=== PATIENT | male | born 1995 | race Caucasian/White ===

== ENCOUNTER 2017-10-11 16:06 | Inpatient (IN) | payer OTHER ==
[~2017-10-11] VITALS: Ht 182.9 cm; Wt 156.5 kg
[2017-10-11 16:26] VITALS: BP 157/97
[2017-10-11] MEDS ORDERED: NACL 0.9% 1,000 ML IV ONE ×2 (16:55→17:40)
[2017-10-11] MEDS ORDERED: INSULIN REGULAR, HUMAN 100 UNIT/ML VIAL SUBQ ONE (16:55)
--- NOTE | 2017-10-11 17:00 | NUR ---
21m bib mother with c/o 5/10 "sharp" intermittent epigastric pain x 5 days. Pt also reports of polydipsia, n/v. Pt denies any urinary complaints. Pt reports of 3-5 episodes per day. Pt is aox4 with steady gait. Skin warm/dry/appriopriate for ethinicity. RR are even and unlabored. No acute distress noted. ER md kent by bedside. All needs met at this time. Will continue to monitor.
[2017-10-11 17:14] LABS: BASOPHILS # (AUTO) 0.5 K/uL (0.00-0.22); EOSINOPHILS # (AUTO) 0.1 K/uL (0-0.4); HEMATOCRIT 51.3 % (36-52); HEMOGLOBIN 16.9 g/dL (12.0-18.0); LYMPHOCYTES # (AUTO) 2.5 K/uL (2.0-11.5); MEAN CORPUSCULAR HEMOGLOBIN 27 pg (27-31); MEAN CORPUSCULAR HGB CONC 33 g/dL (33-37); MEAN CORPUSCULAR VOLUME 83 fL (80-94); MONOCYTES # (AUTO) 0.8 K/uL (0.8-1.0); NEUTROPHILS # (AUTO) 5.7 K/uL (1.8-7.7); PLATELET COUNT (AUTO) 213 K/uL (140-450); RED BLOOD CELL COUNT(AUTO) 6.18 MIL/uL (4.20-6.10); RED CELL DISTRIBUTION WIDTH 13.1 % (11.6-13.7); WHITE BLOOD COUNT (AUTO) 9.6 K/uL (4.8-10.8)
[2017-10-11] MEDS ORDERED: INSULIN REGULAR, HUMAN 100 UNIT/ML VIAL IVP ONE (17:15)
[2017-10-11 17:32] LABS: ANION GAP 26.1 (8-16); CARBON DIOXIDE 15.8 mmol/L (21-32); CHLORIDE 96 mmol/L (98-107); CREATININE 1.2 mg/dL (0.7-1.3); GFR ARICAN-AMERICAN 98 mL/min (>90); GLUCOSE 352 mg/dL (74-106); POTASSIUM 3.9 mmol/L (3.5-5.1); SODIUM SERUM 134 mmol/L (136-145); UREA NITROGEN, BLOOD 10 mg/dL (7-18)
[2017-10-11 17:39] LABS: ASPARTATE AMINOTRANSFERASE 53 U/L (15-37); FREE T4 (FREE THYROXINE) 1.24 ng/dL (0.76-1.46); THYROID STIMULATING HORMONE 1.82 uIU/mL (0.34-3.74); TOTAL BILIRUBIN 0.7 mg/dL (0.0-1.0)
[2017-10-11] MEDS ORDERED: POTASSIUM CHLORIDE 20% 40 MEQ/15 ML UDC PO ONE (17:40)
[2017-10-11 17:54] LABS: APPEARANCE,URINE CLEAR (CLEAR); BILIRUBIN,URINE 1+ (NEGATIVE); BLOOD, URINE 1+ (NEGATIVE); COLOR,URINE YELLOW (YELLOW); LEUKOCYTE ESTERASE ,URINE NEGATIVE (NEGATIVE); NITRITE, URINE NEGATIVE (NEGATIVE); UGLUCOSE 3+ (NEGATIVE)
--- NOTE | 2017-10-11 18:02 | NUR ---
PT WITH NO COMPLAINTS. PT WENDY ANY NAUSEA AT THIS TIME. MOTHER AND FATHER BY BEDSIDE. WILL CONTINUE TO MONITOR.
[2017-10-11 18:06] LABS: RBC,URINE 3-10 (FEW) /HPF (0-5)
[2017-10-11 18:31] LABS: ACETONE, SERUM SMALL (NEGATIVE)
--- NOTE | 2017-10-11 19:16 | NUR ---
Pt report given to Keith Silva RN. Transfer of care at this time.
--- NOTE | 2017-10-11 19:33 | NUR ---
recieved report from Beti CAMARILLO
[2017-10-11] MEDS ORDERED: MORPHINE SULFATE 2 MG/ML SYR IVP PRN (20:35)
[2017-10-11] MEDS ORDERED: HYDROcodone/APAP 7.5/325 MG 1 TAB PO PRN (20:35)
[2017-10-11] MEDS ORDERED: ACETAMINOPHEN 325 MG TAB PO PRN (20:35)
[2017-10-11] MEDS ORDERED: KETOROLAC 30 MG/ML VIAL IVP PRN (20:35)
[2017-10-11] MEDS ORDERED: DOCUSATE SODIUM 100 MG GELCAP PO PRN (20:35)
[2017-10-11] MEDS ORDERED: PROCHLORPERAZINE 10 MG/2 ML VIAL IVP PRN (20:35)
[2017-10-11] MEDS ORDERED: DEXTROSE 50% 50 ML SYR IVP PRN (20:55)
[2017-10-11] MEDS ORDERED: INSULIN LANTUS 100 UNITS/ML 10 ML VIAL SUBQ SCH ×2 (21:00)
[2017-10-11 21:11] LABS: PROTHROMBIN TIME 11.4 secs (10.8-13.4)
--- NOTE | 2017-10-11 21:15 | NUR ---
RECEIVED PT FROM ED NURSE. PT AMB TO BED. NO ACUTE DISTRESS. FAMILY @ BEDSIDE. WILL CONTINUE TO MONITOR
[2017-10-11 21:21] LABS: CHOL/HDL RATIO 10.4 (1-4.5); MAGNESIUM 1.7 mg/dL (1.8-2.4); PHOSPHORUS 4.4 mg/dL (2.5-4.9); THYROID STIMULATING HORMONE 1.81 uIU/mL (0.34-3.74)
[2017-10-11] MEDS: BLOOD GLUCOSE MONITORING 1 DEV DEV FS SCH (21:26)
--- NOTE | 2017-10-11 21:30 | NUR ---
PT AAOX4 SITTING UP IN BED, ABLE TO MOVE ALL EXTREMITIES PERRLA +3. LUNGS CLEAR TO AUSCULTATION. NSR ON MONITOR +2 PEDAL/RADIAL PULSES. NO EDEMA NOTED. SCDS APPLIED. ABD SOFT NON DISTENDED, PT IS OBESE. LBM 10/11/17. PT VOIDING IN URINAL CLEAR YELLOW URINE. SKIN INTACT. PERIPHERAL IV NOTED TO RIGHT HAND. NO ACUTE DISTRESS NOTED. WILL CONTINUE TO OBSERVE.
[2017-10-11 22:00] VITALS: BP 179/87
[2017-10-11] MEDS: NACL 0.9% 1,000 ML IV SCH (22:15)
[2017-10-11] MEDS: INSULIN LISPRO SLIDING SCALE 100 UNITS/ML VIAL SUBQ PRN (22:21)
--- NOTE | 2017-10-11 22:30 | NUR ---
PT EATING DINNER, TOLERATING PO INTAKE. WILL CONTINUE TO OBSERVE
--- NOTE | 2017-10-11 22:45 | NUR ---
DR. COLON @ BEDSIDE
[2017-10-12] VITALS (12 sets, daily range): BP systolic 127–167; BP diastolic 46–97
--- NOTE | 2017-10-12 00:18 | NUR ---
PT ASLEEP IN BED, AROUSABLE. NO S/S OF ACUTE DISTRESS NOTED. PT DENIES HEADACHE, PAIN, LIGHTHEADEDNESS, NAUSEA OR VOMITING. PT WARM, DRY, AFEBRILE NO SWEATING NOTED. WILL CONTINUE TO MONITOR.
[2017-10-12 00:49] LABS: MAGNESIUM 1.6 mg/dL (1.8-2.4); PHOSPHORUS 3.7 mg/dL (2.5-4.9)
[2017-10-12 00:59] LABS: ANION GAP 23.1 (8-16); CARBON DIOXIDE 15.9 mmol/L (21-32)
[2017-10-12] MEDS: NACL 0.9% 1,000 ML IV SCH ×4 (02:24→15:19)
--- NOTE | 2017-10-12 02:30 | NUR ---
PT ASLEEP IN BED, RESTING COMFORTABLY NO S/S OF DISTRESS NOTED. WILL CONTINUE TO OBSERVE.
[2017-10-12] MEDS ORDERED: BLOOD GLUCOSE MONITORING 1 DEV DEV FS SCH (03:00)
[2017-10-12] MEDS: INSULIN LISPRO SLIDING SCALE 100 UNITS/ML VIAL SUBQ PRN (03:54)
[2017-10-12] MEDS ORDERED: INSULIN REGULAR, HUMAN 100 UNIT/ML VIAL SUBQ ONE (04:00)
[2017-10-12] MEDS ORDERED: MAG SULF 2000 MG/WATER PREMIX 50 ML IV SCH ×2 (04:00→22:30)
[2017-10-12] MEDS ORDERED: INSULIN REGULAR, HUMAN 100 UNIT/ML VIAL SUBQ SCH (04:05)
--- NOTE | 2017-10-12 04:10 | NUR ---
ORDERS CLARIFIED WITH DR. COLON, 6 UNITS HUMALOG GIVEN EARLIER FOR MD LOVE STATED TO GIVE ANOTHER 4 UNITS REGULAR INSULIN. SEE EMAR FOR DETAILS WILL CONTINUE TO OBSERVE.
--- NOTE | 2017-10-12 06:00 | NUR ---
PT HELPED UP TO VOID IN URINAL, 1000 ML OUT. PT AWAKE DENIES PAIN @ THIS TIME. NO S/S OF HYPOGLYCEMIA REPORTED. WILL CONTINUE TO MONITOR.
[2017-10-12 06:39] LABS: BASOPHILS # (AUTO) 0.2 K/uL (0.00-0.22); BASOPHILS % (AUTO) 2.3 % (0.0-2.0); EOSINOPHILS # (AUTO) 0.2 K/uL (0-0.4); HEMATOCRIT 46.7 % (36-52); HEMOGLOBIN 15.8 g/dL (12.0-18.0); LYMPHOCYTES # (AUTO) 2.7 K/uL (2.0-11.5); LYMPHOCYTES % (AUTO) 25.7 % (20.5-51.1); MEAN CORPUSCULAR HEMOGLOBIN 28 pg (27-31); MEAN CORPUSCULAR HGB CONC 34 g/dL (33-37); MEAN CORPUSCULAR VOLUME 82 fL (80-94); MONOCYTES # (AUTO) 0.7 K/uL (0.8-1.0); NEUTROPHILS # (AUTO) 6.8 K/uL (1.8-7.7); PLATELET COUNT (AUTO) 197 K/uL (140-450); RED BLOOD CELL COUNT(AUTO) 5.69 MIL/uL (4.20-6.10); RED CELL DISTRIBUTION WIDTH 12.6 % (11.6-13.7); WHITE BLOOD COUNT (AUTO) 10.6 K/uL (4.8-10.8)
[2017-10-12] MEDS ORDERED: INSULIN LANTUS 100 UNITS/ML 10 ML VIAL SUBQ SCH (07:10)
--- NOTE | 2017-10-12 07:16 | NUR ---
REPORT GIVEN TO [facility] DAY NURSE. ORDERS LABS POC ENDORSED TO DAY SHIFT RN.
--- NOTE | 2017-10-12 07:20 | NUR ---
RECEIVED BEDSIDE REPORT FROM NUTRITIONIST [facility] RN
--- NOTE | 2017-10-12 07:20 | NUR ---
RECEIVED BEDSIDE REPORT FROM MIGRATORY GAME BIRD BIOLOGIST RN, ANGÉLICA, FOR CONTINUITY OF CARE. PATIENT IS AAOX4, ABLE TO FOLLOW COMMANDS AND MAKE NEEDS KNOWN. PATIENT'S SKIN IS INTACT, WARM AND DRY, HAS PERIPHERAL IV SITES TO L.HAND AND R. HAND, BOTH ASYMPTOMATIC, PATENT, INTACT. PERRL. BILATERAL LUNG SOUNDS ARE CLEAR, SYMMETRICAL AND UNLABORED. SR ON VACUUM CLEANER REPAIRER, S1 AND S2 HEART SOUNDS HEARD. ACTIVE BOWEL SOUNDS HEARD IN ALL FOUR QUADS. NO COMPLAINTS OF NAUSEA, VOMITING OF PAIN AT THIS TIME. NO SIGNS OF DISTRESS NOTED. CALL LIGHT WITHIN REACH, HOB IS SEMI-FOWLERS IN LOWEST POSSIBLE POSITION. WILL CONTINUE TO MONITOR.
[2017-10-12 07:25] LABS: POTASSIUM 3.5 mmol/L (3.5-5.1)
[2017-10-12 07:28] LABS: ANION GAP 22.3 (8-16); CARBON DIOXIDE 16.2 mmol/L (21-32)
[2017-10-12] MEDS: GEMFIBROZIL 600 MG TAB PO SCH ×2 (07:30→16:43)
[2017-10-12 07:34] LABS: MAGNESIUM 1.9 mg/dL (1.8-2.4); PHOSPHORUS 3.1 mg/dL (2.5-4.9)
[2017-10-12] MEDS: BLOOD GLUCOSE MONITORING 1 DEV DEV FS SCH ×17 (07:57→23:51)
[2017-10-12] MEDS ORDERED: metFORMIN 850 MG TAB PO SCH (08:00)
--- NOTE | 2017-10-12 08:21 | NUR ---
RESIDENT PHYSICIANS ROUNDING AT BEDSIDE, UPDATED ON PATIENT'S CONDITION. WILL FOLLOW UP ON ANY ORDERS.
--- NOTE | 2017-10-12 08:35 | NUR ---
US TECH AT BEDSIDE FOR ULTRASOUND OF ABDOMEN, PATIENT PRESENTS NO DISTRESS AT THIS TIME.
[2017-10-12] MEDS ORDERED: LORazepam 2 MG/ML VIAL IVP SCH (08:39)
--- NOTE | 2017-10-12 09:15 | NUR ---
RESIDENT PHYSICIAN IN TO DO CENTRAL LINE PLACEMENT FOR PATIENT, US TECH AT BEDSIDE. PATIENT VSS, NO DISTRESS AT THIS TIME.
--- NOTE | 2017-10-12 09:52 | NUR ---
CYBER DEFENSE INCIDENT RESPONDER AT BEDSIDE FOR XRAY OF PLACEMENT OF CENTRAL LINE, PATIENT IS IN STABLE CONDITION AT THIS TIME.
--- NOTE | 2017-10-12 09:55 | NUR ---
AFB 2ND SPECIMEN COLLECTED AT THIS TIME SAMPLE DELIVERED TO [facility] FOR PROCESSING Addendum: 10/12/17 at 1130 by Wu Frost RT DISREGARD DOCUMENTATION ON WRONG PATIENT CARE PROVIDER MISTAKE
[2017-10-12] MEDS: LISINOPRIL 5 MG TAB PO SCH (10:32)
[2017-10-12] MEDS: LACTOBACILLUS RHAMNOSUS GG 1 EACH CAP PO SCH (10:33)
[2017-10-12] MEDS: ASPIRIN 81 MG TAB.CHEW PO SCH (10:33)
[2017-10-12] MEDS: ATORVASTATIN 80 MG TAB PO SCH (10:34)
--- NOTE | 2017-10-12 10:48 | NUR ---
CM NOTE PER LETTUCE CUTTER ROSA, SEND REVIEWS TO [facility] [phone] JOSS MELÉNDEZ # [phone]. INITIAL REVIEW FAXED TO [facility] [phone] ATTN: JOSS MELÉNDEZ # [phone]. Addendum: 10/12/17 at 1133 by Nola Sheehan CM REF# [id number] Addendum: 10/12/17 at 1221 by Nola Sheehan CM PLEASE DISREGARD ABOVE NOTE. WRONG NOTE
--- NOTE | 2017-10-12 10:52 | NUR ---
US TECH AT BEDSIDE FOR ULTRASOUND OF LOWER EXTREMITIES, NO SIGNS OF DISTRESS NOTED AT THIS TIME.
[2017-10-12] MEDS: INSULIN REGULAR, HUMAN 100 UNIT in NACL 0.9% 100 ML IV SCH ×4 (12:04→21:43)
--- NOTE | 2017-10-12 12:18 | NUR ---
CM NOTE INITIAL REVIEW FAXED TO [facility] [phone] ATTN: PAM HOLLINGSWORTH PH# [phone] EXT [phone]
--- NOTE | 2017-10-12 12:53 | NUR ---
FAMILY AT BEDSIDE, UPDATED ON PATIENTS CONDITION, WILL CONTINUE TO MONITOR
[2017-10-12 13:06] LABS: ANION GAP 22.6 (8-16); CARBON DIOXIDE 15.8 mmol/L (21-32); CREATININE 0.9 mg/dL (0.7-1.3); POTASSIUM 3.4 mmol/L (3.5-5.1)
[2017-10-12 13:11] LABS: MAGNESIUM 1.6 mg/dL (1.8-2.4); PHOSPHORUS 3.2 mg/dL (2.5-4.9)
--- NOTE | 2017-10-12 14:36 | NUR ---
10/12/2017 RD INITIAL ASSESSMENT COMPLETED PLEASE REFER TO NUTRITION ASSESSMENT UNDER CARE ACTIVITY FOR ESTIMATED NUTRITIONAL NEEDS. WHEN MEDICALLY FEASIBLE, ADVANCE TO 60 GMS CCHO DIET TOLERATED. PROVIDED DM NUTRITION EDUCATION. WILL FOLLOW UP W/ DIET ED AT NEXT VISIT. RD TO FOLLOW-UP IN 2-3 DAYS PATIENT IS HIGH RISK. PHUONG REYES RD
[2017-10-12] MEDS ORDERED: MAGNESIUM OXIDE 400 MG TAB PO SCH (16:10)
[2017-10-12] MEDS ORDERED: POTASSIUM CHLORIDE 10 MEQ TABER PO SCH (16:10)
--- NOTE | 2017-10-12 16:16 | NUR ---
CALLED DR. BARRINGTON STONE ON [phone] NO ANSWER AND [phone] LEFT RETURN NUMBER [phone] TO REVIEW VENOUS BLOOD SAMPLE REPORT
--- NOTE | 2017-10-12 16:18 | NUR ---
PATIENT CLEANED AND CHANGED GOWN, NO SIGNS OF DISTRESS NOTED. WILL CONTINUE TO MONITOR
[2017-10-12 16:21] LABS: ANION GAP 21.2 (8-16); CARBON DIOXIDE 17.1 mmol/L (21-32); POTASSIUM 3.3 mmol/L (3.5-5.1)
[2017-10-12 16:26] LABS: MAGNESIUM 1.6 mg/dL (1.8-2.4); PHOSPHORUS 3.3 mg/dL (2.5-4.9)
--- NOTE | 2017-10-12 19:34 | NUR ---
RECEIVED PT FROM [facility] DAY NURSE.
--- NOTE | 2017-10-12 19:40 | NUR ---
PT ASLEEP, AROUSABLE PT FAMILY @ BEDSIDE. AAOX4 MOVING ALL EXTREMITIES. LUNGS CTA. SR 90S BP ELEVATED 160S. NO EDEMA NOTED. +2 PEDAL/RADIAL PULSES. ABD SOFT NON DISTENDED, PT OBESE. VOIDING IN URINAL CLEAR YELLOW URINE. SKIN INTACT. PIVS NOTED TO L HAND AND R HAND. CENTRAL LINE TO RIJ NOTED WITH NS @ 200ML/HR, INSULIN DRIP @ 1 UNIT/HR. PT DENIES PAIN NAUSEA VOMITING. NO S/S OF ACUTE DISTRESS NOTED. WILL CONTINUE TO MONITOR.
--- NOTE | 2017-10-12 19:51 | NUR ---
INFORMED MD ABOUT RECENT BS -192 MD, AWAITING MD ORDERS. WILL CONTINUE TO MONITOR.
[2017-10-12] MEDS ORDERED: DEXT 5% / NACL 0.45% 1,000 ML IV SCH (19:55)
[2017-10-12 20:13] LABS: ANION GAP 21.3 (8-16); CARBON DIOXIDE 16.1 mmol/L (21-32); POTASSIUM 3.4 mmol/L (3.5-5.1)
[2017-10-12 20:16] LABS: MAGNESIUM 1.7 mg/dL (1.8-2.4); PHOSPHORUS 3.2 mg/dL (2.5-4.9)
--- NOTE | 2017-10-12 21:25 | NUR ---
BROTHER AND SISTER @ BEDSIDE
[2017-10-12] MEDS ORDERED: KCL 20 MEQ/WATER INJ PREMIX 200 ML IV SCH (22:30)
[2017-10-12] MEDS ORDERED: ONDANSETRON 4 MG/2 ML VIAL IVP PRN (23:25)
[2017-10-12] MEDS ORDERED: POTASSIUM CHL 40 MEQ/ D5-1/2NS 1,000 ML IV SCH (23:25)
--- NOTE | 2017-10-12 23:25 | NUR ---
INFORMED MD ABOUT RECENT SUGAR AND C/O ABD PAIN. MD AWARE. NEW ORDERS RECEIVED SEE EMAR FOR DETAILS. WILL CARRY OUT ORDERS.
--- NOTE | 2017-10-12 23:45 | NUR ---
LAB AT BEDSIDE
[2017-10-13] VITALS (11 sets, daily range): BP systolic 110–164; BP diastolic 54–107
[2017-10-13] MEDS ORDERED: INSULIN LISPRO 100 UNITS/ML VIAL SUBQ SCH
[2017-10-13 00:34] LABS: ANION GAP 20.5 (8-16); CARBON DIOXIDE 16.2 mmol/L (21-32); POTASSIUM 3.7 mmol/L (3.5-5.1)
--- NOTE | 2017-10-13 00:34 | NUR ---
PT ASLEEP, AROUSABLE NO S/S OF ACUTE DISTRESS NOTED. WILL CONTINUE TO OBSERVE.
[2017-10-13 00:38] LABS: MAGNESIUM 2.2 mg/dL (1.8-2.4); PHOSPHORUS 2.6 mg/dL (2.5-4.9)
[2017-10-13] MEDS: BLOOD GLUCOSE MONITORING 1 DEV DEV FS SCH ×23 (00:56→23:11)
--- NOTE | 2017-10-13 03:32 | NUR ---
PT ASLEEP, AROUSABLE. PT STATES ABDOMINAL PAIN IS AT 2/10. STATES HE DOES NOT WANT PAIN MEDS AT THIS TIME. NO OTHER S/S OF DISTRESS NOTED. WILL CONTINUE TO MONITOR.
[2017-10-13 05:15] LABS: ANION GAP 18.7 (8-16); POTASSIUM 3.7 mmol/L (3.5-5.1)
[2017-10-13 05:18] LABS: MAGNESIUM 2.1 mg/dL (1.8-2.4); PHOSPHORUS 2.7 mg/dL (2.5-4.9)
[2017-10-13] MEDS: POTASSIUM CHL 20 MEQ/NACL 0.9% 1,000 ML IV SCH ×5 (05:57→23:07)
--- NOTE | 2017-10-13 06:15 | NUR ---
OFFERED TO BATHE THIS AM; STATED HES WAITING FOR MOTHER TO BRING TOILETRIES FROM HOME. CHANGED GOWN.
[2017-10-13 07:04] LABS: T4 (THYROXINE) 8.4 ug/dL (4.5-12.0)
--- NOTE | 2017-10-13 07:22 | NUR ---
REPORT GIVEN TO DON CAMARILLO. ORDERS, LABS POC ENDORSED TO AM NURSE. NO ACUTE DISTRESS NOTED.
[2017-10-13] MEDS: GEMFIBROZIL 600 MG TAB PO SCH ×2 (07:47→17:02)
[2017-10-13] MEDS: LACTOBACILLUS RHAMNOSUS GG 1 EACH CAP PO SCH (08:37)
[2017-10-13] MEDS: LISINOPRIL 5 MG TAB PO SCH (08:38)
[2017-10-13] MEDS: ATORVASTATIN 80 MG TAB PO SCH (08:38)
[2017-10-13] MEDS: ASPIRIN 81 MG TAB.CHEW PO SCH (08:41)
[2017-10-13 09:33] LABS: ANION GAP 18.7 (8-16); CARBON DIOXIDE 14.8 mmol/L (21-32); POTASSIUM 3.5 mmol/L (3.5-5.1)
[2017-10-13 09:44] LABS: MAGNESIUM 1.4 mg/dL (1.8-2.4); PHOSPHORUS 2.3 mg/dL (2.5-4.9)
[2017-10-13] MEDS ORDERED: MAG SULF 2000 MG/WATER PREMIX 50 ML IV SCH (10:29)
[2017-10-13] MEDS ORDERED: SODIUM PHOS / POTASSIUM PHOS 1 PKT PDR PO SCH (10:36)
--- NOTE | 2017-10-13 10:42 | NUR ---
PATIENT REMAIN ON INSULIN DRIP MONITORING SUGARS EVERY ONE HR FAMILY AT THE BED SIDE LUNG CLEAR SAT 97% AT ROOM AIR. SKIN DRY AND WARM DENIES ANY PAIN. Addendum: 10/13/17 at 1052 by Agency 06 RN RN Amended: Links added.
[2017-10-13 12:17] LABS: ANION GAP 19.8 (8-16); CARBON DIOXIDE 14.9 mmol/L (21-32); CREATININE 0.9 mg/dL (0.7-1.3); POTASSIUM 3.7 mmol/L (3.5-5.1)
[2017-10-13 12:21] LABS: MAGNESIUM 1.9 mg/dL (1.8-2.4); PHOSPHORUS 2.6 mg/dL (2.5-4.9)
--- NOTE | 2017-10-13 14:41 | NUR ---
CM NOTE INITIAL REVIEW FAXED TO [facility] / FAX# [phone] ATTN: PAM #[phone] [id number]
--- NOTE | 2017-10-13 15:32 | NUR ---
remain npo taking medication with small amt of water taking naps on and off but very alert when awake. Addendum: 10/13/17 at 1535 by Agency Evin CAMARILLO RN Amended: Links added.
[2017-10-13 16:45] LABS: MAGNESIUM 1.9 mg/dL (1.8-2.4); PHOSPHORUS 2.9 mg/dL (2.5-4.9)
[2017-10-13 16:47] LABS: CARBON DIOXIDE 16.7 mmol/L (21-32); CREATININE 0.9 mg/dL (0.7-1.3); POTASSIUM 3.7 mmol/L (3.5-5.1)
--- NOTE | 2017-10-13 19:20 | NUR ---
RECEIVED REPORT FROM MORNING RN FOR CONTINUITY OF CARE. VS STABLE AT THIS TIME. NO C/O PAIN. PT ALERT AND ORIENTED. NO SIGNS OF DISTRESS NOTED. PT COOPERATIVE TOWARDS STAFF. PT ABLE TO MAKE NEEDS KNOWN. S1+S2 HEARD. PULSES STRONG AND PALPABLE ON ALL EXTREMITIES. SR ON MONITOR. LUNG SOUNDS CLEAR BILATERAL. NO COUGH. OXYGEN SATURATION WNL. PT IN ROOM AIR. PT CURRENTLY NPO. ABDOMEN SOFT, ROUND, AND NONDISTENDED. BOWEL SOUNDS ACTIVE IN ALL QUADRANTS. PT ON INSULIN DRIP AT 1 UNIT/HR, AND NS WITH 20MEQ POTASSIUM AT 300ML/HR. PT HAS RIGHT IJ CENTRAL LINE. LINE PATENT AND ASYMPTOMATIC. DRESSING INTACT. BED AT LOW POSSIBLE POSITION. CALL LIGHT WITHIN REACH. ALL SAFETY PRECAUTIONS ARE IN PLACE. WILL CONTINUE TO MONITOR PT.
[2017-10-13 20:22] LABS: ANION GAP 20.4 (8-16); CARBON DIOXIDE 15.3 mmol/L (21-32); CREATININE 0.9 mg/dL (0.7-1.3); POTASSIUM 3.7 mmol/L (3.5-5.1)
[2017-10-13 20:25] LABS: MAGNESIUM 1.8 mg/dL (1.8-2.4); PHOSPHORUS 2.9 mg/dL (2.5-4.9)
[2017-10-13] MEDS: SODIUM PHOS / POTASSIUM PHOS 1 PKT PDR PO SCH (21:27)
--- NOTE | 2017-10-13 21:30 | NUR ---
SCHEDULED MEDICATION ADMINISTERED. PT ABLE TO SWALLOW MEDICATION WITH NO PROBLEM. PT'S MOM AT BEDSIDE. NO C/O PAIN. DENIES N/V. WILL CONTINUE TO MONITOR PT.
[2017-10-13] MEDS: INSULIN REGULAR, HUMAN 100 UNIT in NACL 0.9% 100 ML IV SCH ×2 (22:00)
[2017-10-14] VITALS (11 sets, daily range): BP systolic 106–144; BP diastolic 51–101
[2017-10-14] MEDS: BLOOD GLUCOSE MONITORING 1 DEV DEV FS SCH ×24 (00:15→23:15)
--- NOTE | 2017-10-14 00:46 | NUR ---
PT AWAKE. LAYING COMFORTABLY IN BED. NO CONCERNS. STATES HE IS FEELING OKAY. BLOOD SUGAR STILL CHECKED EVERY HOUR. PT STILL ON INSULIN DRIP. BED AT LOW POSSIBLE POSITION. CALL LIGHT WITHIN REACH. WILL CONTINUE TO MONITOR PT.
[2017-10-14] MEDS ORDERED: POTASSIUM CHL 20 MEQ/NACL 0.9% 1,000 ML IV ONE ×2 (00:49→06:01)
--- NOTE | 2017-10-14 02:25 | NUR ---
VS STABLE AT THIS TIME. PT KEEPS REMOVING BP CUFF. NO CHANGE IN CONDITION AT THIS TIME. ALL SAFETY PRECAUTIONS ARE IN PLACE. CALL LIGHT WITHIN REACH. WILL CONTINUE TO MONITOR PT.
--- NOTE | 2017-10-14 04:59 | NUR ---
PT ASLEEP. VS STABLE. NO CHANGE IN CONDITION AT THIS TIME. PT STILL ON INSULIN DRIP. WILL CONTINUE TO MONITOR PT.
[2017-10-14] MEDS: POTASSIUM CHL 20 MEQ/NACL 0.9% 1,000 ML IV SCH ×5 (05:47→15:08)
[2017-10-14 06:58] LABS: BASOPHILS # (AUTO) 0.4 K/uL (0.00-0.22); BASOPHILS % (AUTO) 3.9 % (0.0-2.0); EOSINOPHILS # (AUTO) 0.5 K/uL (0-0.4); EOSINOPHILS % (AUTO) 4.8 % (0.0-4.0); HEMATOCRIT 44.4 % (36-52); LYMPHOCYTES # (AUTO) 1.8 K/uL (2.0-11.5); LYMPHOCYTES % (AUTO) 18.9 % (20.5-51.1); MEAN CORPUSCULAR HEMOGLOBIN 28 pg (27-31); MEAN CORPUSCULAR HGB CONC 34 g/dL (33-37); MEAN CORPUSCULAR VOLUME 82 fL (80-94); MONOCYTES # (AUTO) 0.8 K/uL (0.8-1.0); MONOCYTES % (AUTO) 8.4 % (1.7-9.3); PLATELET COUNT (AUTO) 154 K/uL (140-450); RED BLOOD CELL COUNT(AUTO) 5.39 MIL/uL (4.20-6.10); RED CELL DISTRIBUTION WIDTH 13.4 % (11.6-13.7); WHITE BLOOD COUNT (AUTO) 9.5 K/uL (4.8-10.8)
[2017-10-14] MEDS: GEMFIBROZIL 600 MG TAB PO SCH ×2 (07:02→16:30)
[2017-10-14] MEDS ORDERED: NACL 0.9% 1,000 ML IV SCH ×3 (07:15→15:45)
--- NOTE | 2017-10-14 07:15 | NUR ---
RECEIVED BEDSIDE REPORT FROM WILDLIFE ECOLOGY PROFESSOR RN, CLAUDETTE, FOR CONTINUITY OF CARE. PATIENT IS OBSERVED SLEEPING, AAOX4, ABLE TO FOLLOW SIMPLE COMMANDS AND MAKE NEEDS KNOWN. SKIN IS INTACT, WARM AND DRY. PATIENT HAS CENTRAL LINE IV TO RIGHT IJ, ASYMPTOMATIC, PATENT AND INTACT. VS STABLE AT THIS TIME, SR ON MONITOR. BILATERAL LUNG SOUNDS ARE CLEAR, EVEN AND UNLABORED. S1 AND S2 HEART SOUNDS HEARD, CAP REFILL LESS THAN 3 SECS. PATIENT COMPLAINS OF UPPER ABDOMEN PAIN, WILL NOTIFY PHYSICIAN. LAST BS CHECK WAS 189 PER WILDLIFE ECOLOGY PROFESSOR RN. HOB IS IN SEMI JACOBO IN THE LOWEST POSSIBLE POSITION. CALL LIGHT WITHIN REACH, WILL MONITOR CLOSELY.
--- NOTE | 2017-10-14 07:15 | NUR ---
REPORT GIVEN TO RABIA LEO FOR CONTINUITY OF CARE. PT IN STABLE CONDITION.
[2017-10-14 07:23] LABS: ANION GAP 17.8 (8-16); CARBON DIOXIDE 16.8 mmol/L (21-32); CREATININE 0.9 mg/dL (0.7-1.3); POTASSIUM 3.6 mmol/L (3.5-5.1)
[2017-10-14 07:25] LABS: MAGNESIUM 1.5 mg/dL (1.8-2.4); PHOSPHORUS 3.1 mg/dL (2.5-4.9)
[2017-10-14] MEDS ORDERED: MAG SULF 2000 MG/WATER PREMIX 50 ML IV SCH (08:00)
--- NOTE | 2017-10-14 08:05 | NUR ---
FAMILY AT BEDSIDE, UPDATED ON PATIENT'S CONDITION. NO SIGNS OF DISTRESS NOTED, WILL CONTINUE TO MONITOR
--- NOTE | 2017-10-14 08:38 | NUR ---
RESIDENT PHYSICIANS AND ROUNDING ON PATIENT AT BEDSIDE, UPDATED ON PATIENT'S CONDITION, AWARE OF UPPER ABDOMEN PAIN, WILL FOLLOW UP ON ORDERS.
[2017-10-14] MEDS ORDERED: METOCLOPRAMIDE 10 MG/2 ML INJ VIAL IVP PRN (08:45)
[2017-10-14] MEDS: ASPIRIN 81 MG TAB.CHEW PO SCH (08:49)
[2017-10-14] MEDS: ATORVASTATIN 80 MG TAB PO SCH (08:49)
[2017-10-14] MEDS: LISINOPRIL 5 MG TAB PO SCH (08:49)
[2017-10-14] MEDS: LACTOBACILLUS RHAMNOSUS GG 1 EACH CAP PO SCH (08:49)
[2017-10-14] MEDS: SODIUM PHOS / POTASSIUM PHOS 1 PKT PDR PO SCH (09:08)
--- NOTE | 2017-10-14 09:16 | NUR ---
CM NOTE RECEIVED VM MESSAGE FROM [facility] HOLL[facility]SWOR[facility] STATING THAT IF PATIENT WOULD NEED HOME HEALTH TO USE CARE [facility]# [phone]. CONCURRENT REVIEW FAXED TO [facility] [phone] ATTN: PAM HOLLINGSWORTH # [phone] EXT [phone].
[2017-10-14] MEDS ORDERED: ONDANSETRON 4 MG/2 ML VIAL IVP PRN (10:20)
--- NOTE | 2017-10-14 12:05 | NUR ---
PROVIDED PATIENT WITH LUNCH TRAY, PATIENT DENIES ANY PAIN, NAUSEA, OR VOMITING. NO SIGNS OF DISTRESS NOTED, CALL LIGHT WITHIN REACH, WILL CONTINUE TO MONITOR
--- NOTE | 2017-10-14 12:07 | NUR ---
CALLED DR. BARRINGTON STONE [phone] NOT IN AREA INFORMED DR. MADISYN MOORE OG [facility] IN [facility]
[2017-10-14 14:24] LABS: ANION GAP 19.7 (8-16); CARBON DIOXIDE 17.2 mmol/L (21-32); POTASSIUM 3.9 mmol/L (3.5-5.1)
--- NOTE | 2017-10-14 14:29 | NUR ---
10/14/17 RD FOLLOW UP ASSESSMENT COMPLETED GOAL: MEET >75% OF ESTIMATED NEEDS VIA PO DIET, WITH ACCEPTABLE TOLERANCE WITHIN 3-5 DAYS. GRADUAL WEIGHT LOSS, 1-2 LBS/WEEK UNTIL IBW ACHIEVED. DISCHARGE PLAN: PATIENT CURRENTLY NPO, WILL REASSESS AT RD FOLLOW UP. NICHOLE BLANK MS, RDN
[2017-10-14] MEDS ORDERED: INSULIN REGULAR, HUMAN 100 UNIT in NACL 0.9% 100 ML IV SCH ×2 (15:45)
[2017-10-14] MEDS: DEXT 5% / NACL 0.45% 1,000 ML IV SCH ×2 (15:55→20:55)
[2017-10-14 16:30] LABS: ANION GAP 15.9 (8-16); CARBON DIOXIDE 18.9 mmol/L (21-32); CREATININE 0.9 mg/dL (0.7-1.3); POTASSIUM 3.8 mmol/L (3.5-5.1)
[2017-10-14 16:34] LABS: MAGNESIUM 1.6 mg/dL (1.8-2.4); PHOSPHORUS 2.9 mg/dL (2.5-4.9)
--- NOTE | 2017-10-14 18:23 | NUR ---
RESIDENT PHYSICIAN IN TO SEE PATIENT, UPDATED ON PATIENTS CONDITION, AWARE OF DKA PROTOCOL CHANGE, WILL FOLLOW UP ON ANY ORDERS.
--- NOTE | 2017-10-14 19:12 | NUR ---
ENDORSED BEDSIDE REPORT TO TRUCK SWITCHER RNCLAUDETTE FOR CONTINUITY OF CARE. PATIENT SHOWS NO SIGNS OF DISTRESS AT THIS TIME.
--- NOTE | 2017-10-14 19:15 | NUR ---
RECEIVED REPORT FROM RABIA LEO FOR CONTINUITY OF CARE. PT AWAKE, ALERT AND ORIENTED. ABLE TO MAKE NEEDS KNOWN. VS STABLE. LUNG SOUNDS CLEAR. PT IN ROOM AIR. DENIES SOB. NO SIGNS OF RESPIRATORY DISTRESS NOTED. S1+S2 HEARD. PULSES ARE PALPABLE IN ALL EXTREMITIES. SINUS TACHYCARDIA ON MONITOR. DENIES CHEST PAIN. ABDOMEN ROUND, SOFT, AND NONDISTENDED. PT USES URINAL. PT HAS RIGHT IJ CENTRAL LINE. LINE PATENT AND ASYMPTOMATIC. PT IS ON INSULIN DRIP PER DKA PROTOCOL. HAS D5 1/2 NS RUNNING AT 100ML/HR. BED AT LOW POSSIBLE POSITION. CALL LIGHT WITHIN REACH. ALL SAFETY PRECAUTIONS ARE IN PLACE. WILL CONTINUE TO MONITOR PT.
[2017-10-14 20:48] LABS: ANION GAP 16.4 (8-16); CARBON DIOXIDE 18.1 mmol/L (21-32); CREATININE 0.9 mg/dL (0.7-1.3); MAGNESIUM 1.6 mg/dL (1.8-2.4); PHOSPHORUS 2.7 mg/dL (2.5-4.9); POTASSIUM 3.5 mmol/L (3.5-5.1)
--- NOTE | 2017-10-14 21:53 | NUR ---
CALLED DR. BURRELL (RESIDENT) TO INFORM THAT PT BG IS TRENDING UP AND HE CURRENTLY HAS D5 1/2 NS AT 100ML/HR. PER DR. BURRELL, HE WANTS TO WAIT UNTIL THE NEXT READING UNTIL FURTHER ORDERS.
[2017-10-15] VITALS (12 sets, daily range): BP systolic 109–150; BP diastolic 39–87
[2017-10-15] MEDS: BLOOD GLUCOSE MONITORING 1 DEV DEV FS SCH ×19 (00:05→19:53)
--- NOTE | 2017-10-15 00:20 | NUR ---
PT LAYING IN BED COMFORTABLY, AND STILL AWAKE. NO C/O PAIN. NO NAUSEA OR VOMITING. NO OTHER DISCOMFORT REPORTED. CALL LIGHT WITHIN REACH. ALL SAFETY PRECAUTIONS ARE IN PLACE. WILL CONTINUE TO MONITOR PT.
[2017-10-15 01:27] LABS: ANION GAP 16.4 (8-16); CARBON DIOXIDE 19.8 mmol/L (21-32); CREATININE 0.9 mg/dL (0.7-1.3); POTASSIUM 3.2 mmol/L (3.5-5.1)
[2017-10-15 01:31] LABS: MAGNESIUM 1.5 mg/dL (1.8-2.4); PHOSPHORUS 2.8 mg/dL (2.5-4.9)
[2017-10-15] MEDS: INSULIN REGULAR, HUMAN 100 UNIT in NACL 0.9% 100 ML IV SCH ×4 (02:13→12:10)
--- NOTE | 2017-10-15 03:11 | NUR ---
VS STABLE AT THIS TIME. NO CHANGE IN CONDITION. PT AWAKE. NO C/O PAIN. NO OTHER DISCOMFORT REPORTED BY PT. CALL LIGHT WITHIN REACH. ALL SAFETY PRECAUTIONS ARE IN PLACE. WILL CONTINUE TO MONITOR PT.
[2017-10-15] MEDS: DEXT 5% / NACL 0.45% 1,000 ML IV SCH ×4 (04:30→15:44)
[2017-10-15 05:26] LABS: HEMATOCRIT 45.2 % (36-52); HEMOGLOBIN 14.8 g/dL (12.0-18.0); MEAN CORPUSCULAR HEMOGLOBIN 27 pg (27-31); MEAN CORPUSCULAR HGB CONC 33 g/dL (33-37); MEAN CORPUSCULAR VOLUME 84 fL (80-94); PLATELET COUNT (AUTO) 122 K/uL (140-450); RED BLOOD CELL COUNT(AUTO) 5.39 MIL/uL (4.20-6.10); RED CELL DISTRIBUTION WIDTH 13.2 % (11.6-13.7); WHITE BLOOD COUNT (AUTO) 12.7 K/uL (4.8-10.8)
--- NOTE | 2017-10-15 05:50 | NUR ---
RECEIVED CALL FROM DR. BULLOCK WANTING AN UPDATE REGARDING PT CONDITION. INFORMED DR. BULLOCK THAT PT BG HAS BEEN TRENDING DOWN. WILL CONTINUE TO MONITOR PT.
[2017-10-15 06:00] LABS: ANION GAP 16.6 (8-16); CARBON DIOXIDE 20.4 mmol/L (21-32); CREATININE 0.8 mg/dL (0.7-1.3)
[2017-10-15 06:02] LABS: MAGNESIUM 1.6 mg/dL (1.8-2.4); PHOSPHORUS 3.1 mg/dL (2.5-4.9)
--- NOTE | 2017-10-15 06:25 | NUR ---
DR. BULLOCK AT BEDSIDE TO SEE PT. WILL FOLLOW-UP WITH ANY NEW ORDERS.
[2017-10-15] MEDS: GEMFIBROZIL 600 MG TAB PO SCH ×2 (06:31→16:40)
[2017-10-15] MEDS ORDERED: NACL 0.9% 1,000 ML IV SCH (06:50)
[2017-10-15 07:01] LABS: EOSINOPHILS % (MANUAL) 5 % (0-4); LYMPHOCYTES % (MANUAL) 25 % (20-46); MONOCYTES % (MANUAL) 10 % (5-12)
--- NOTE | 2017-10-15 07:15 | NUR ---
GIVEN REPORT TO MORNING RN FOR CONTINUITY OF CARE. PT IN STABLE CONDITION AT THIS TIME.
--- NOTE | 2017-10-15 07:30 | NUR ---
RECEIVED BEDSIDE REPORT FROM MOLD BUILDER RN. PATIENT IS AAOX4, ABLE TO FOLLOW COMMANDS AND MAKE NEEDS KNOWN. PT IS AFEBRILE AND DENIES PAIN OR DISCOMFORT. NORMAL SINUS RHYTHM ON MONITOR. S1 +S2 HEARD. PT IS ON ROOM AIR, BILATERAL LUNG SOUNDS ARE CLEAR, SYMMETRICAL CHEST RISE NOTED AND BREATHING UNLABORED. CENTRAL LINE TO RIGHT IJ TLC ASYMPTOMATIC, PATENT AND INTACT W/ GOOD BLOOD RETURN. PT IS RECEIVING IV FLUIDS D51/2NS AT 100 ML/HR, NORMAL SALINE AT 75 ML/HR AND INSULIN DRIP AT 7.8 UNITS/HR. ABDOMEN SOFT, NONTENDER, ACTIVE BOWEL SOUNDS HEARD IN ALL FOUR QUADRANTS. SKIN IS INTACT, WARM AND DRY. NO SIGNS OF DISTRESS NOTED. CALL LIGHT WITHIN REACH, HOB 45 DEGREES AND BED IN LOWEST POSITION. NEEDS WELL ATTENDED. SAFETY PRECAUTIONS IN PLACE. WILL CONTINUE TO MONITOR.
[2017-10-15] MEDS: LISINOPRIL 5 MG TAB PO SCH (09:26)
[2017-10-15] MEDS: LACTOBACILLUS RHAMNOSUS GG 1 EACH CAP PO SCH (09:26)
[2017-10-15] MEDS: ATORVASTATIN 80 MG TAB PO SCH (09:26)
[2017-10-15] MEDS: ASPIRIN 81 MG TAB.CHEW PO SCH (09:27)
[2017-10-15] MEDS: MAGNESIUM OXIDE 400 MG TAB PO SCH ×2 (09:27→20:31)
--- NOTE | 2017-10-15 09:30 | NUR ---
MEDICATIONS ADMINISTERED. PT TOLERATED WELL.
[2017-10-15 10:21] LABS: ANION GAP 15.4 (8-16); CARBON DIOXIDE 21.6 mmol/L (21-32); CREATININE 0.9 mg/dL (0.7-1.3)
[2017-10-15 10:25] LABS: MAGNESIUM 1.4 mg/dL (1.8-2.4)
--- NOTE | 2017-10-15 10:52 | NUR ---
DR. BULLOCK MADE AWARE OF POTASSIUM LEVEL OF 3.0. WILL FOLLOW UP ON ORDERS.
[2017-10-15] MEDS ORDERED: POTASSIUM CHLORIDE 40 MEQ, LIDOCAINE 1% 25 MG in NACL 0.9% 250 ML IV SCH (11:45)
--- NOTE | 2017-10-15 12:27 | NUR ---
NO CHANGE OF CONDITION AT THIS TIME. FAMILY AT BEDSIDE. VITAL SIGNS STABLE. NO ACUTE DISTRESS NOTED. SAFETY MEASURES ENSURED.
[2017-10-15] MEDS ORDERED: MAG SULF 2000 MG/WATER PREMIX 100 ML IV SCH (12:30)
--- NOTE | 2017-10-15 13:20 | NUR ---
DR. BULLOCK IN TO SEE PT. WILL FOLLOW UP ON ORDERS.
[2017-10-15 13:53] LABS: ANION GAP 13.8 (8-16); CARBON DIOXIDE 21.6 mmol/L (21-32); CREATININE 0.8 mg/dL (0.7-1.3); POTASSIUM 3.4 mmol/L (3.5-5.1)
[2017-10-15 13:57] LABS: MAGNESIUM 1.7 mg/dL (1.8-2.4)
--- NOTE | 2017-10-15 15:52 | NUR ---
PT IS RESTING COMFORTABLY. FAMILY AT BEDSIDE. VSS. NO C/O PAIN OR DISCOMFORT. WILL CONTINUE TO MONITOR.
[2017-10-15 17:34] LABS: ANION GAP 12.2 (8-16); CARBON DIOXIDE 23.2 mmol/L (21-32); CREATININE 0.8 mg/dL (0.7-1.3); POTASSIUM 3.4 mmol/L (3.5-5.1)
[2017-10-15 17:38] LABS: PHOSPHORUS 2.7 mg/dL (2.5-4.9)
--- NOTE | 2017-10-15 17:48 | NUR ---
PT SEEN AND EXAMINED BY DR. HUERTA. WILL FOLLOW UP ON ORDERS. DR. HUERTA MADE AWARE OF BLOOD SUGAR 192. PER DR. HUERTA, CONTINUE INSULIN DRIP AT 0.1 UNITS/KG/HR AND IV FLUID D51/2NS AT 200 ML/HR UNTIL FURTHER ORDER.
[2017-10-15] MEDS ORDERED: INSULIN LANTUS 100 UNITS/ML 10 ML VIAL SUBQ SCH (18:25)
[2017-10-15] MEDS ORDERED: KCL 20 MEQ/WATER INJ PREMIX 100 ML IV SCH (18:30)
[2017-10-15] MEDS ORDERED: MAG SULF 2000 MG/WATER PREMIX 50 ML IV SCH (18:30)
[2017-10-15] MEDS: NACL 0.9% 1,000 ML IV SCH (18:48)
--- NOTE | 2017-10-15 19:30 | NUR ---
RECEIVED BEDSIDE REPORT FROM MORNING SHIFT NURSE RN. DIAS. PATIENT IS AAOX4, ABLE TO FOLLOW COMMANDS AND MAKE NEEDS KNOWN. NO ACUTE DISTRESS NOTED. DENIES PAIN. SR ON THE FORM TAMPER OPERATOR. S1,S2 HEARD. BILATERAL LUNG SOUND ARE CLEAR. PT IS ON ROOM AIR, O2 SAT 99%. PT HAS CENTRAL LINE ON RIGHT IJ, NO S/S OF INFECTION, INTACT AND PATENT. PT IS ON NS 100ML/HR, MAGNESIUM DRIP AND POTASSIUM DRIP. ACTIVE BOWEL SOUND FROM ALL 4 QUADS. SKIN IS INTACT. HOB ELEVATED, BED IS LOW POSITION, CALL LIGHT WITHIN REACH. WILL CONTINUE TO MONITOR.
--- NOTE | 2017-10-15 19:31 | NUR ---
REPORT GIVEN TO NIGHT NURSE FOR CONTINUITY OF CARE. PT IS IN STABLE CONDITION.
--- NOTE | 2017-10-15 20:00 | NUR ---
BS CHECKED 267 NOTED, ADMINISTERED REGULAR INSULIN 6 UNITS ORDERED. NO ACUTE DISTRESS NOTED SR ON THE MONITOR. WILL CONTINUE TO MONITOR.
[2017-10-15] MEDS: INSULIN LISPRO SLIDING SCALE 100 UNITS/ML VIAL SUBQ PRN (20:31)
[2017-10-15 22:11] LABS: ANION GAP 15.7 (8-16); CARBON DIOXIDE 20.9 mmol/L (21-32); CREATININE 0.8 mg/dL (0.7-1.3); POTASSIUM 3.6 mmol/L (3.5-5.1)
[2017-10-15 22:15] LABS: MAGNESIUM 2.4 mg/dL (1.8-2.4); PHOSPHORUS 3.1 mg/dL (2.5-4.9)
--- NOTE | 2017-10-15 22:30 | NUR ---
PT'S FAMILY MEMBERS AT BEDSIDE. PT IS AWAKE, AAO X4, VERBALLY RESPONSIVE. NO ACUTE DISTRESS NOTED. DENIES PAIN. SR ON THE MONITOR. VSS. WILL CONTINUE TO MONITOR.
[2017-10-16] VITALS (8 sets, daily range): BP systolic 113–147; BP diastolic 56–78
--- NOTE | 2017-10-16 00:10 | NUR ---
BS CHECKED 221 NOTED, ADMINISTERED REGULAR INSULIN 4 UNITS ORDERED. PT IS IN ASLEEP, AROUSABLE TO VOICE. NO ACUTE RESPIRATORY DISTRESS NOTED. SR ON THE MONITOR.
[2017-10-16] MEDS: BLOOD GLUCOSE MONITORING 1 DEV DEV FS SCH ×5 (00:41→20:29)
[2017-10-16] MEDS: INSULIN LISPRO SLIDING SCALE 100 UNITS/ML VIAL SUBQ PRN ×6 (00:42→20:33)
[2017-10-16 00:51] LABS: ANION GAP 14.1 (8-16); CARBON DIOXIDE 22.6 mmol/L (21-32); CREATININE 0.8 mg/dL (0.7-1.3); POTASSIUM 3.7 mmol/L (3.5-5.1)
[2017-10-16 00:54] LABS: PHOSPHORUS 3.5 mg/dL (2.5-4.9)
--- NOTE | 2017-10-16 02:00 | NUR ---
PT IS IN ASLEEP, AROUSABLE TO VOICE. VSS. SR ON THE MONITOR. NO ACUTE DISTRESS NOTED. DENIES PAIN. CALL LIGHT WITHIN THE REACH. WILL CONTINUE TO MONITOR.
[2017-10-16] MEDS: NACL 0.9% 1,000 ML IV SCH ×3 (03:38→17:01)
--- NOTE | 2017-10-16 04:00 | NUR ---
PT IS IN ASLEEP, AROUSABLE TO VOICE. VSS. BS CHECKED 221 NOTED, ADMINISTERED 4 UNITS OF REGULAR INSULIN. SR ON THE MONITOR. NO ACUTE DISTRESS NOTED. DENIES PAIN. CALL LIGHT WITHIN THE REACH. WILL CONTINUE TO MONITOR.
[2017-10-16 05:39] LABS: ANION GAP 14.6 (8-16); CARBON DIOXIDE 21.9 mmol/L (21-32); CREATININE 0.7 mg/dL (0.7-1.3); POTASSIUM 3.5 mmol/L (3.5-5.1)
[2017-10-16 05:43] LABS: MAGNESIUM 1.8 mg/dL (1.8-2.4); PHOSPHORUS 3.7 mg/dL (2.5-4.9)
--- NOTE | 2017-10-16 06:00 | NUR ---
PT IS AWAKE, AAO X4. VSS. SR ON THE MONITOR. NO ACUTE DISTRESS NOTED. DENIES PAIN. CALL LIGHT WITHIN THE REACH. WILL CONTINUE TO MONITOR.
--- NOTE | 2017-10-16 07:30 | NUR ---
ECEIVED BEDSIDE REPORT FROM RADIATION CONTROL WORKER RN. PATIENT IS AAOX4, ABLE TO FOLLOW COMMANDS AND MAKE NEEDS KNOWN. NORMAL SINUS RHYTHM ON MONITOR. S1 +S2 HEARD. PT IS ON ROOM AIR, BILATERAL LUNG SOUNDS ARE CLEAR. CENTRAL LINE TO RIGHT IJ TLC ASYMPTOMATIC, PATENT AND INTACT, RUNNING NORMAL SALINE AT 50 ML/HR. ABDOMEN SOFT, NONTENDER, ACTIVE BOWEL SOUNDS HEARD IN ALL FOUR QUADRANTS. SKIN IS INTACT, WARM AND DRY. NO SIGNS OF DISTRESS NOTED. PT IS AFEBRILE AND DENIES PAIN OR DISCOMFORT. CALL LIGHT WITHIN REACH, BED IN LOWEST POSITION. WILL CONTINUE TO MONITOR.
--- NOTE | 2017-10-16 07:30 | NUR ---
REPORT GIVEN TO MORNING SHIFT RN FOR CONTINUITY OF CARE.
[2017-10-16] MEDS: GEMFIBROZIL 600 MG TAB PO SCH ×2 (07:44→16:36)
[2017-10-16 08:03] LABS: HEMATOCRIT 43.3 % (36-52); HEMOGLOBIN 14.4 g/dL (12.0-18.0); MEAN CORPUSCULAR HEMOGLOBIN 27 pg (27-31); MEAN CORPUSCULAR HGB CONC 33 g/dL (33-37); MEAN CORPUSCULAR VOLUME 82 fL (80-94); PLATELET COUNT (AUTO) 201 K/uL (140-450); RED BLOOD CELL COUNT(AUTO) 5.28 MIL/uL (4.20-6.10); RED CELL DISTRIBUTION WIDTH 13.4 % (11.6-13.7); WHITE BLOOD COUNT (AUTO) 7.3 K/uL (4.8-10.8)
[2017-10-16 08:26] LABS: MAGNESIUM 1.7 mg/dL (1.8-2.4); PHOSPHORUS 3.5 mg/dL (2.5-4.9)
[2017-10-16 08:40] LABS: BASOPHILS % (MANUAL) 0 % (0-2); EOSINOPHILS % (MANUAL) 8 % (0-4); LYMPHOCYTES % (MANUAL) 33 % (20-46); MONOCYTES % (MANUAL) 4 % (5-12)
[2017-10-16] MEDS: ATORVASTATIN 80 MG TAB PO SCH (08:51)
[2017-10-16] MEDS: LISINOPRIL 5 MG TAB PO SCH (08:51)
[2017-10-16] MEDS: LACTOBACILLUS RHAMNOSUS GG 1 EACH CAP PO SCH (08:51)
[2017-10-16] MEDS: MAGNESIUM OXIDE 400 MG TAB PO SCH ×2 (08:52→20:24)
[2017-10-16] MEDS: ASPIRIN 81 MG TAB.CHEW PO SCH (08:52)
[2017-10-16] MEDS: INSULIN LANTUS 100 UNITS/ML 10 ML VIAL SUBQ SCH (08:58)
--- NOTE | 2017-10-16 09:15 | NUR ---
MORNING MEDICATIONS ADMINISTERED. PT TOLERATED WELL.
--- NOTE | 2017-10-16 11:30 | NUR ---
10/16/17 RD FOLLOW UP COMPLETED PLEASE REFER TO NUTRITION PROGRESS NOTE UNDER CARE ACTIVITY FOR ESTIMATED NUTRITION NEEDS. RD RECOMMENDATIONS: 1.CONTINUE ON CCHO 6O GM DIET TOLERATED. 2.RDN MAY CONSIDER ADDING DIET HEALTH SHAKES TO HELP MEET ESTIMATED NEEDS; HOWEVER, AT THIS TIME, PATIENT MAY BENEFIT FROM GRADUAL WT LOSS DUE TO DX T2DM AND BG MANAGEMENT. 3.RD TO FOLLOW-UP IN 2-3 DAYS; HIGH RISK. NICHOLE BLANK MS, RDN
--- NOTE | 2017-10-16 11:54 | NUR ---
DR. ABEL AND RESIDENT GROUP IN TO SEE PT. WILL FOLLOW UP ON ORDERS.
--- NOTE | 2017-10-16 12:30 | NUR ---
MINIMAL ST ELEVATION AND PEAKED T WAVE NOTED ON FASHION ADVISER. RESIDENT PHYSICIAN DR. VELASQUEZ MADE AWARE. WILL FOLLOW UP ON ORDERS.
--- NOTE | 2017-10-16 12:47 | NUR ---
PT IS RESTING COMFORTABLY AT THIS TIME. FAMILY AT BEDSIDE. VITAL SIGNS STABLE. DENIES PAIN OR DISCOMFORT. WILL CONTINUE TO MONITOR.
--- NOTE | 2017-10-16 14:46 | NUR ---
NO CHANGE OF CONDITION AT THIS TIME. VITAL SIGNS STABLE. FAMILY AT BEDSIDE. SAFETY PRECAUTIONS IN PLACE.
--- NOTE | 2017-10-16 16:36 | NUR ---
MEDICATION ADMINISTERED. PT TOLERATED WELL. FAMILY AT BEDSIDE. SAFETY PRECAUTIONS IN PLACE.
--- NOTE | 2017-10-16 18:50 | NUR ---
PATIENT ARRIVED ON MST UNIT FROM ICU VIA WHEELCHAIR. ABLE TO AMBULATE FROM WHEELCHAIR TO MST BED WITH STEADY GAIT. PATIENT IS AAOX4, CALM, COOPERATIVE, SKIN COLOR APPROPRIATE TO ETHNICITY, WARM TO TOUCH. SKIN IS INTACT. DENIES ANY PAIN AT THIS TIME. RESPIRATIONS EVEN, UNLABORED, ON ROOM AIR. HAS RIGHT IJ TRIPLE LUMEN THAT IS INTACT, PATENT, AND RECONNECTED IVF PER ORDERS. ORIENTED PATIENT TO ROOM AND CALL LIGHT. REVIEWED PLAN OF CARE WITH PATIENT AND FAMILY MEMBERS AT BEDSIDE. PATIENT/FAMILY VERBALIZED UNDERSTANDING. SAFETY MEASURES IN PLACE, CALL LIGHT WITHIN REACH. WILL CONTINUE TO MONITOR.
--- NOTE | 2017-10-16 18:55 | NUR ---
PT TRANSFERRED TO TELEMETRY ROOM 119A. REPORT GIVEN TO RABIA AU AT BEDSIDE. PT IS IN STABLE CONDITION.
--- NOTE | 2017-10-16 19:23 | NUR ---
GAVE REPORT TO COMBAT SYSTEMS OPERATOR MINE WARFARE NURSE FOR CONTINUITY OF CARE. PATIENT IN STABLE CONDITION.
--- NOTE | 2017-10-16 19:24 | NUR ---
RECEIVED REPORT FROM DAY NURSE. PT IN STABLE CONDITION. NO S/S OF DISTRESS NOTED. PT AAOX4, ON ROOM AIR. PT HAS TRIPLE LUMEN RIJ, PATENT AND INTACT, INFUSING WELL. SKIN WARM AND DRY TO TOUCH, INTACT. RR EVEN/UNLABORED. BOWEL SOUNDS PRESENT. INITIAL ASSESSMENT COMPLETED. PLAN OF CARE DISCUSSED WITH PT AND FAMILY AT THE BEDSIDE, ALL SAFETY PRECAUTIONS MET, BOARD UPDATED, CALL LIGHT WITHIN REACH, WILL CONTINUE TO MONITOR.
[2017-10-16 20:52] LABS: MAGNESIUM 1.5 mg/dL (1.8-2.4); PHOSPHORUS 3.3 mg/dL (2.5-4.9)
[2017-10-17] VITALS: BP 130/68
--- NOTE | 2017-10-17 | NUR ---
PT RESTING IN BED. NO S/S OF DISTRESS NOTED. WILL CONTINUE TO MONITOR
--- NOTE | 2017-10-17 02:08 | NUR ---
PT RESTING IN BED. NO S/S OF DISTRESS NOTED. WILL CONTINUE TO MONITOR
[2017-10-17 04:00] VITALS: BP 128/64
[2017-10-17] MEDS: GEMFIBROZIL 600 MG TAB PO SCH (06:33)
[2017-10-17] MEDS: BLOOD GLUCOSE MONITORING 1 DEV DEV FS SCH ×2 (06:34→12:24)
[2017-10-17] MEDS: INSULIN LISPRO SLIDING SCALE 100 UNITS/ML VIAL SUBQ PRN ×2 (06:35→12:35)
[2017-10-17 06:39] LABS: ANION GAP 13.5 (8-16); CARBON DIOXIDE 24.8 mmol/L (21-32); CREATININE 0.6 mg/dL (0.7-1.3); POTASSIUM 3.3 mmol/L (3.5-5.1)
[2017-10-17 06:44] LABS: MAGNESIUM 1.6 mg/dL (1.8-2.4); PHOSPHORUS 4.2 mg/dL (2.5-4.9)
[2017-10-17 06:52] LABS: HEMATOCRIT 42.9 % (36-52); HEMOGLOBIN 14.4 g/dL (12.0-18.0); MEAN CORPUSCULAR HEMOGLOBIN 28 pg (27-31); MEAN CORPUSCULAR HGB CONC 34 g/dL (33-37); MEAN CORPUSCULAR VOLUME 82 fL (80-94); PLATELET COUNT (AUTO) 187 K/uL (140-450); RED BLOOD CELL COUNT(AUTO) 5.22 MIL/uL (4.20-6.10); RED CELL DISTRIBUTION WIDTH 13.2 % (11.6-13.7); WHITE BLOOD COUNT (AUTO) 8.2 K/uL (4.8-10.8)
--- NOTE | 2017-10-17 07:22 | NUR ---
BEDSIDE REPORT GIVEN TO DAYSHIFT NURSE FOR CONTINUITY OF CARE, PT IN STABLE CONDITION. NO S/S OF DISTRESS NOTED.
--- NOTE | 2017-10-17 07:22 | NUR ---
RECEIVED BEDSIDE REPORT FROM NIGHTSHIFT NURSE. PATIENT ASLEEP AT THIS TIME BUT AROUSABLE TO NAME. NO RESPIRATORY DISTRESS OR RESPIRATORY DEPRESSION NOTED AT THIS TIME. PATIENT DOES NOT SHOW SIGNS OF ANY PAIN. PATIENT IS SLEEPING IN SUPINE POSITION. UPDATED BOARD AND PUT CALL LIGHT WITHIN REACH OF PATIENT. WILL CONTINUE TO MONITOR PATIENT.
[2017-10-17 08:00] VITALS: BP 113/63
[2017-10-17] MEDS: LACTOBACILLUS RHAMNOSUS GG 1 EACH CAP PO SCH (08:34)
[2017-10-17] MEDS: MAGNESIUM OXIDE 400 MG TAB PO SCH (08:34)
[2017-10-17] MEDS: LISINOPRIL 5 MG TAB PO SCH (08:35)
[2017-10-17] MEDS: ASPIRIN 81 MG TAB.CHEW PO SCH (08:35)
[2017-10-17] MEDS: ATORVASTATIN 80 MG TAB PO SCH (08:35)
[2017-10-17] MEDS: INSULIN LANTUS 100 UNITS/ML 10 ML VIAL SUBQ SCH (08:40)
[2017-10-17 08:42] LABS: EOSINOPHILS % (MANUAL) 6 % (0-4); LYMPHOCYTES % (MANUAL) 33 % (20-46); MONOCYTES % (MANUAL) 8 % (5-12)
--- NOTE | 2017-10-17 10:38 | NUR ---
PATIENT FAMILY MEMBERS AT BEDSIDE. PATIENT IS AWAKE. ALERT AND ORIENTED X4. WILL CONTINUE TO MONITOR PATIENT.
--- NOTE | 2017-10-17 11:44 | NUR ---
CM NOTE CONCURRENT REVIEW FAXED TO [facility] [phone] ATTN: PAM HOLLINGSWORTH # [phone] EXT [phone].
[2017-10-17 12:00] VITALS: BP 143/82
--- NOTE | 2017-10-17 12:14 | NUR ---
TAUGHT PATIENT HOW TO CHECK HIS OWN BLOOD SUGAR. PATIENT ABLE TO PERFORM THE PROCEDURE WITH GUIDANCE. PATIENT FEELS COMFORTABLE WITH PERFORMING AT HOME. WILL TEACH PATIENT HOW TO ADMINISTER INSULIN INDEPENDENTLY.
--- NOTE | 2017-10-17 12:40 | NUR ---
TAUGHT PATIENT HOW TO INJECT HIMSELF WITH INSULIN. TAUGHT PATIENT HOW TO CORRECTLY MEASURE THE UNITS WITH THE SYRINGE. PATIENT VERBALIZED UNDERSTANDING AND DEMONSTRATED HOW TO SAFELY INJECT HIMSELF.
[2017-10-17] MEDS ORDERED: MAGNESIUM OXIDE 400 MG TAB PO SCH (13:33)
--- NOTE | 2017-10-17 13:40 | NUR ---
PATIENT IS WITH FAMILY MEMBERS AT THIS TIME. PATIENT DOES NOT COMPLAIN OF PAIN OR SHOW ANY SIGNS OF RESPIRATORY DISTRESS OR RESPIRATORY DEPRESSION. WILL CONTINUE TO MONITOR PATIENT.
[2017-10-17] MEDS ORDERED: LANC-587 MC (13:43)
[2017-10-17] MEDS ORDERED: LANTUS SUBQ (13:43)
[2017-10-17] MEDS ORDERED: GEMF600T5 PO (13:48)
[2017-10-17] MEDS ORDERED: ATOR40TA PO (14:01)
[2017-10-17] MEDS ORDERED: POTASSIUM CHLORIDE 10 MEQ TABER PO SCH (15:27)
--- NOTE | 2017-10-17 15:38 | NUR ---
PATIENT SIGNED ALL DISCHARGE INSTRUCTIONS AND IS AWARE OF ALL MEDICATION PRESCRIPTIONS. PATIENT AWARE OF FOLLOW UP WITH PRIMARY DOCTOR. REMOVED PATIENT'S CENTRAL LINE USING STERILE TECHNIQUE WITH CATHETER STILL INTACT. APPLIED PRESSURE TO SITE OF INSERTION FOR 5 MINUTES WITH A 4X4 GAUZE. PATIENT TOLERATED WELL. REMOVED IDENTIFICATION BANDS AND TELE MONITOR BOX. PATIENT GATHERED ALL BELONGINGS AND LEFT WITH FAMILY MEMBERS.
--- NOTE | 2017-10-18 10:24 | NUR ---
Documentation on wrong Patient Addendum: 10/18/17 at 1025 by Candi Arnett CM Amended: Links added.
== END 2017-10-17 15:40 | disposition home or self-care (01) | DRG 637 ==
LOC: MED 16:06 → MIC 20:44 → MTU 10-16 18:55
PROVIDERS: ADMIT Family Medicine Sports Medicine; ATTEND Family Medicine Sports Medicine
PROC: 02HV33Z Insertion of Infusion Device into Superior Vena Cava, Percutaneous Approach (ICD-10-PCS; principal; 2017-10-12)
DX: E11.10 Type 2 diabetes mellitus with ketoacidosis without coma (principal); N17.0 Acute kidney failure with tubular necrosis; E43 Unspecified severe protein-calorie malnutrition; D68.69 Other thrombophilia; E66.01 Morbid (severe) obesity due to excess calories; E83.42 Hypomagnesemia; E83.51 Hypocalcemia; K76.0 Fatty (change of) liver, not elsewhere classified; Z68.42 Body mass index [BMI] 45.0-49.9, adult; E87.1 Hypo-osmolality and hyponatremia; E86.0 Dehydration; E78.5 Hyperlipidemia, unspecified; E78.1 Pure hyperglyceridemia; E11.69 Type 2 diabetes mellitus with other specified complication; E78.2 Mixed hyperlipidemia; E87.6 Hypokalemia
CPT/HCPCS: 36415; 36600; 71045; 76700; 80048; 80053; 81001; 82009; 82803; 82948; 83036; 83735; 83880; 84100; 84436; 84439; 84443; 84479; 84484; 85025; 85610; 85730; 87081; 87086; 93005; 93925; 93970; 96360; 96361; 99285; J1642; J1815; J1885; J2001; J2060; J2405; J2765; J3475; J3480; J7030; Q0092